=== PATIENT | male | born 1990 | race African-American/Black ===

== ENCOUNTER 2017-05-27 09:50 | Emergency (ER) | payer MEDICAID, OTHER ==
[~2017-05-27] VITALS: Ht 180.3 cm; Wt 93.0 kg
[2017-05-27 09:50] VITALS: BP 130/78
[~2017-05-27 09:50] MED LIST: CEPH-570 PO; HYDR1TAB PO
== END 2017-05-27 14:18 | disposition home or self-care (01) ==
LOC: ER 09:55
DX: K59.00 Constipation, unspecified (principal); Z90.89 Acquired absence of other organs
CPT/HCPCS: A4606; Z7610